=== PATIENT | male | born 1945 | race American Indian/Alaskan Native ===

== ENCOUNTER 2017-07-15 08:29 | Day surgery (SDC) | payer MEDICARE ==
[2017-07-15 09:31] LABS: Basophils % (Auto) 0.7 % (0.0-1.8); Eosinophils # (Auto) 0.1 K/mm3 (0.0-0.4); Eosinophils % (Auto) 2.5 % (0.0-4.3); Hematocrit 45.6 % (35.5-45.6); Hemoglobin 14.4 gm/dl (11.8-15.2); Lymphocytes # (Auto) 1.2 K/mm3 (1.2-5.4); Lymphocytes % (Auto) 22.9 % (13.4-35.0); Mean Corpuscular HGB Conc 32 % (32-34); Mean Corpuscular Hemoglobin 27 pg (28-32); Mean Corpuscular Volume 85 fl (84-94); Monocytes # (Auto) 0.6 K/mm3 (0.0-0.8); Monocytes % (Auto) 10.6 % (0.0-7.3); Platelet Count 154 K/mm3 (140-440); Red Blood Count 5.37 M/mm3 (3.65-5.03); Red Cell Distribution Width 15.2 % (13.2-15.2)
--- NOTE | 2017-07-15 09:40 | Anesthesia Consultation ---
Anesthesia Consult and Med Hx Date of service: 07/15/17 - Airway Anesthetic Teeth Evaluation: Good ROM Head & Neck: Adequate Mental/Hyoid Distance: Adequate Mallampati Class: Class I Intubation Access Assessment: Good - Pulmonary Exam CTA: Yes - Cardiac Exam Cardiac Exam: RRR - Pre-Operative Health Status ASA Pre-Surgery Classification: ASA3 Proposed Anesthetic Plan: General - Pulmonary Hx Smoking: Yes (STOPPED 2004 , 1 PPD X 30 YRS) Hx Sleep Apnea: Yes (DX SLEEP APNEA WITH CPAP USE) - Cardiovascular System Hx Hypertension: Yes (X 20 YRS) - Central Nervous System Hx Back Pain: Yes - Endocrine Hx Non-Insulin Dependent Diabetes: Yes Hx Hypothyroidism: Yes
--- NOTE | 2017-07-15 09:40 | Anesthesia Day of Surgery ---
Anesthesia Day of Surgery - Day of Surgery Patient Examined: Yes Patient H&P Reviewed: Yes Patient is NPO: Yes Beta Blockers: Yes
[2017-07-15] MEDS ORDERED: LACTATED RINGERS 1,000 ML IV SCH (10:00)
[2017-07-15] MEDS ORDERED: ANCEF/STERILE WATER 2 GM/20 ML IV NR (10:05)
[2017-07-15 10:06] LABS: BUN/Creatinine Ratio 20; Blood Urea Nitrogen 18 mg/dL (9-20); Calcium 8.7 mg/dL (8.4-10.2); Hemolysis Index 11
[2017-07-15] MEDS ORDERED: DILAUDID IV PRN (10:24)
[2017-07-15] MEDS ORDERED: ZOFRAN IV PRN (10:24)
[2017-07-15] MEDS ORDERED: XYLOCAINE MPF 2% ONE (10:26)
[2017-07-15] MEDS ORDERED: DIPRIVAN 10 MG/ML IV ONE (10:26)
[2017-07-15] MEDS ORDERED: SUBLIMAZE ONE (10:28)
[2017-07-15] MEDS ORDERED: NEO SYNEPHRINE/NS Syringe(OR USE) IV ONE (10:59)
[2017-07-15] MEDS ORDERED: ROBINUL ONE (11:00)
[2017-07-15] MEDS ORDERED: DILAUDID ONE (11:02)
[2017-07-15] MEDS ORDERED: ePHEDrine SULFATE ONE (11:27)
[2017-07-15] MEDS ORDERED: ZOFRAN ONE (11:27)
--- NOTE | 2017-07-15 11:53 | Post Operative Note ---
Date of procedure: 07/15/17 Pre-op diagnosis: hydrocele r Post-op diagnosis: same Findings: huge mass Procedure: r hydrocelectomuy Anesthesia: GETA Surgeon: BEHZAD DUBOSE Estimated blood loss: minimal Pathology: list (sac ssmall spermatocele) Specimen disposition: to lab Condition: stable Disposition: PACU
--- NOTE | 2017-07-15 11:55 | Discharge Summary ---
Short Stay Discharge Plan Activity: other (no sraining ) Weight Bearing Status: Full Weight Bearing Diet: low fat, low cholesterol, low salt, diabetic Wound: open to air, keep clean and dry Special Instructions: other (ice x 24 hrs ) Follow up with: DAVEY KILGORE MD [Primary Care Provider] - 7 Days BEHZAD DUBOSE MD [Staff Physician] - 3 Days
--- NOTE | 2017-07-15 12:46 | Operative Report ---
PREOPERATIVE DIAGNOSES: Huge right scrotal mass, huge right hydrocele with a small spermatocele. POSTOPERATIVE DIAGNOSES: Huge right scrotal mass, huge right hydrocele with a small spermatocele. PROCEDURE: Right hydrocelectomy and spermatocelectomy. SURGEON: Archie Boyer M.D. ANESTHESIA: General. FINDINGS: This gentleman with a huge amount of fluid in the right hemiscrotum. He now presents for treatment. DESCRIPTION OF PROCEDURE: The patient was brought to the operating room and placed on the operating table. Following induction of general anesthesia, he was placed in the supine position and prepped and draped in usual sterile fashion. An oblique incision made over the hemiscrotum and carried down through multiple layers of the scrotal fascia to the tunica vaginalis. This was dissected free and then we opened it and obtained approximately 200 mL of clear yellow fluid. We mobilized the tunica vaginalis and excised a good portion of it and then oversewed it with 3-0 chromic so it would not bleed. At this point, there was a multiloculated spermatocele, which was small, which was also excised and sent to pathology. This is oversewn with a 4-0 on an RB. Wound was irrigated. At this point, a drain was placed in the dependent portion of the scrotum with 3.5 inches secured. Fascia was approximated with 3-0 chromic and skin with interrupted 2-0 chromic. The patient tolerated the procedure well with minimal blood loss of less than 5 mL and brought to recovery in stable condition. JOB# [id number] PAYTON/DELROY
[2017-07-15 15:02] VITALS: BP 154/89
== END 2017-07-15 13:50 | disposition home or self-care (01) ==
LOC: OR 08:29
PROVIDERS: ATTEND Urology
DX: N43.3 Hydrocele, unspecified (principal); N43.41 Spermatocele of epididymis, single; C61 Malignant neoplasm of prostate; I10 Essential (primary) hypertension; M19.90 Unspecified osteoarthritis, unspecified site; E11.9 Type 2 diabetes mellitus without complications; G47.30 Sleep apnea, unspecified; E03.9 Hypothyroidism, unspecified; Z79.4 Long term (current) use of insulin; Z87.891 Personal history of nicotine dependence
CPT/HCPCS: 36415; 54840; 55500; 80048; 82962; 85025; 88302; 88304; J0690; J1170; J2370; J2405; J2704; J3010; J7120

== ENCOUNTER 2017-07-25 10:20 | Outpatient (CLI) | payer MEDICARE ==
--- NOTE | 2017-07-30 12:53 | Fluoroscopy Report ---
FLUOROSCOPY CYSTOGRAM VOIDING History: Stress incontinence. Findings: No comparison. 56 fluoroscopic images were captured. The bladder was initially filled with 300 cc of water-soluble contrast. There is normal filling of the bladder with no evidence of reflux or filling defect or extravasation. The Xiong catheter is located within what appears to be markedly dilated prostatic urethra. This apparently represents some sort of postsurgical change such as resection or TURP. Please correlate with the patient's history. Upon removing the Xiong catheter, incontinence was evident. The urethra is patent although there does appear to be moderate smooth narrowing throughout the membranous and bulbar urethra. Narrowing is estimated at approximately 60-70%. The penile urethra is normal. Impression: Normal bladder. The patient was incontinent during this exam. Markedly dilated prostatic urethra which presumably is secondary to surgical change. Moderate smooth narrowing in the membranous and bulbar urethra. It is unclear if this represents a stricture.
== END 2017-07-25 10:21 | disposition home or self-care (01) ==
LOC: FLUORO 10:20
PROVIDERS: ATTEND Urology
DX: N39.3 Stress incontinence (female) (male) (principal); N36.8 Other specified disorders of urethra
CPT/HCPCS: 51600; 74455; Q9958

== ENCOUNTER 2017-11-27 05:56 | Outpatient (CLI) | payer MEDICARE ==
[2017-11-27 07:11] LABS: Blood Urea Nitrogen 19 mg/dL (9-20)
[2017-11-27] MEDS ORDERED: NACL 0.9% 50 ML ONE (07:20)
--- NOTE | 2017-11-27 16:34 | Cat Scan Report ---
FINAL REPORT EXAM: CT ABDOMEN WO/W CON HISTORY: RENAL MASS TECHNIQUE: CT abdomen with and without contrast renal protocol PRIORS: There are no prior studies submitted for comparison FINDINGS: No focal abnormality seen within the liver parenchyma. Spleen is normal in size and attenuation. No pancreatic abnormalities are identified. Note is made fusiform aneurysmal dilatation infrarenal abdominal aorta measuring 3.3 x 3.6 centimeters. Visualized portions of the colon small bowel are unremarkable. There is evidence for prior gastric surgery At the mid left kidney there is a parenchymal mass demonstrating variable enhancement measuring 3.5 x 3.1 by 4.0 centimeters. The mass extends to the margins of the renal pelvis. Right kidney is unremarkable Demonstrated is a low-density left adrenal mass measuring 1.9 x 1.5 centimeters most consistent in appearance with adenoma. Right kidney is unremarkable. No pathologically enlarged lymph nodes are identified in the abdomen. IMPRESSION: Left renal mass highly suspicious for neoplasm Left adrenal nodule most consistent in appearance with adenoma. Evidence for prior gastric surgery Fusiform abdominal aortic aneurysm 3.3 x 3.6 centimeters
== END 2017-11-27 05:57 | disposition home or self-care (01) ==
LOC: CT 05:56
PROVIDERS: ATTEND Urology
DX: N28.89 Other specified disorders of kidney and ureter (principal); I10 Essential (primary) hypertension; K21.9 Gastro-esophageal reflux disease without esophagitis; E78.00 Pure hypercholesterolemia, unspecified; M19.90 Unspecified osteoarthritis, unspecified site; E11.9 Type 2 diabetes mellitus without complications; E03.9 Hypothyroidism, unspecified; F32.9 Major depressive disorder, single episode, unspecified; Z87.891 Personal history of nicotine dependence
CPT/HCPCS: 36415; 74170; 82565; 84520; Q9967